=== PATIENT | male | born 1955 | race Caucasian/White ===

== ENCOUNTER 2018-06-27 01:07 | Emergency (ER) | payer OTHER ==
[~2018-06-27] VITALS: Ht 170.2 cm; Wt 98.9 kg
[~2018-06-27 01:07] MED LIST: CLOP75TA15 PO; METF100P3 MC; METO25TA6 PO; RAMI2.5C2 PO
--- NOTE | 2018-06-27 01:10 | NUR ---
PT [id number] FROM HOME COMPLAINING OF SHARP, INTERMITTENT CHEST PAIN X 1 HOUR. PT DENIES SOB, NVD. SKIN WARM AND INTACT. 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 WILL CONTINUE TO MONITOR
--- NOTE | 2018-06-27 01:40 | NUR ---
NURSING PROGRAM DIRECTOR AT BEDSIDE FOR BLOOD DRAW
[2018-06-27] MEDS ORDERED: NITROGLYCERIN 0.4 MG/TAB BOTTLE ONE (01:42)
--- NOTE | 2018-06-27 01:45 | NUR ---
RADIOLOGY AT BEDSIDE FOR CXR
[2018-06-27 01:55] LABS: BASOPHILS # (AUTO) 0.1 /CMM (0.0-0.2); BASOPHILS % (AUTO) 1.2 % (0.0-2.0); EOSINOPHILS % (AUTO) 1.4 % (0.0-6.0); HEMATOCRIT 42 % (39-51); HEMOGLOBIN 13.9 g/dL (13.5-17.5); LYMPHOCYTES # (AUTO) 2.5 /CMM (0.8-4.8); MEAN CORPUSCULAR HGB CONC 33 g/dl (31.0-36.0); MEAN CORPUSCULAR VOLUME 93 fL (80-96); MONOCYTES # (AUTO) 0.4 /CMM (0.1-1.30); MONOCYTES % (AUTO) 6.5 % (2.0-12.0); NEUTROPHILS # (AUTO) 3.2 /CMM (1.8-8.9); NEUTROPHILS % (AUTO) 50.9 % (43.0-81.0); PLATELET COUNT (AUTO) 156 /CMM (150-450); RDW COEFFICIENT OF VARIATION 13.1 (11.5-15.0); RED BLOOD CELL COUNT(AUTO) 4.53 MIL/uL (4.5-6.0); WHITE BLOOD COUNT (AUTO) 6.3 K/uL (4.3-11.0)
[2018-06-27] MEDS ORDERED: ASPIRIN 81 MG TAB.CHEW PO ONE (02:00)
[2018-06-27] MEDS ORDERED: NITROGLYCERIN 0.4 MG/TAB BOTTLE SL ONE (02:00)
--- NOTE | 2018-06-27 02:00 | NUR ---
CALLED [facility] AND FAXED 2 EKGS AND FACESHEET REQUESTED. AWAITING CALL BACK
--- NOTE | 2018-06-27 02:04 | NUR ---
SPOKE TO URMILA AND STATES "I FAXED THE EKGS TO THE C[facility]; AWAITING FURTHER INSTRUCTIONS"
--- NOTE | 2018-06-27 02:09 | NUR ---
DR. CONTRERAS BARREL BANDER SPEAKING TO DR. HORTA.
[2018-06-27] MEDS ORDERED: HEPARIN SODIUM, PORCINE 5000 UNITS/1 ML VIAL ONE (02:11)
[2018-06-27 02:18] LABS: CALCIUM, SERUM 8.9 mg/dL (8.5-10.1); POTASSIUM 3.2 mmol/L (3.5-5.1)
--- NOTE | 2018-06-27 02:18 | NUR ---
PT COMPLAINING OF INTERMITTENT CHEST PAIN RADIATING DOWN BILATERAL ARMS. PT STATES EPISODES ARE ABOUT 1-2MINUTES APART. VSS.
[2018-06-27 02:21] LABS: INR 0.96 (0.87-1.13)
[2018-06-27 02:27] LABS: TROPONIN I 0.046 ng/mL (0.00-0.056)
[2018-06-27] MEDS ORDERED: HEPARIN SODIUM, PORCINE 5000 UNITS/1 ML VIAL IV ONE (02:30)
[2018-06-27 02:31] VITALS: BP 132/89
--- NOTE | 2018-06-27 02:37 | NUR ---
[facility] CCT AT BEDSIDE. GAVE REPORT TO CLARITA KEARNS FOR GAB[facility]A
--- NOTE | 2018-06-27 02:37 | NUR ---
GAVE REPORT TO CLARITA KEARNS FOR GABRIELA
[2018-06-27] MEDS ORDERED: ONDANSETRON 4 MG TAB.RAPDIS ONE (02:44)
[2018-06-27] MEDS ORDERED: ONDANSETRON 4 MG TAB.RAPDIS SL ONE (03:00)
[2018-06-27] MEDS ORDERED: ONDANSETRON HCL/PF - ER 4 MG/2 ML VIAL IV ONE (03:00)
[2018-06-27] MEDS ORDERED: LIDOCAINE 1% INJ 50 ML MDV IJ ONE (12:15)
== END 2018-06-27 02:43 | disposition short-term general hospital (02) ==
LOC: ER 01:08
DX: I25.10 Atherosclerotic heart disease of native coronary artery without angina pectoris (principal); I10 Essential (primary) hypertension; E11.9 Type 2 diabetes mellitus without complications; Z86.73 Personal history of transient ischemic attack (TIA), and cerebral infarction without residual deficits; Z90.49 Acquired absence of other specified parts of digestive tract; Z85.038 Personal history of other malignant neoplasm of large intestine; Z79.84 Long term (current) use of oral hypoglycemic drugs
CPT/HCPCS: 36415; 71045; 80048; 83880; 84484; 85025; 85730; 93005 ×3; 96374; 99291; A4606; J1644; J2405; J3490; Q0162; Z7610